=== PATIENT | female | born 1990 | race Caucasian/White ===

== ENCOUNTER → 2017-05-15 | Outpatient (CLI) | payer OTHER ==
[~2017-05-15] VITALS: Ht 160 cm; Wt 94.0 kg
[~2017-05-15] MED LIST: ALBUTEROL SULF8.5 GM IH; BENTYL20 MG PO; HYDROCORTISONE30 G3 TP; IBUPROFEN800 MG PO; LAMISIL AT12 GM TP; Motrin PO; NOHOMEMEDS; PRENATAL TABLE1 EAC3 PO; PRENATAL TABLE1 EACH PO; ZOFRAN ODT4 MG PO
[2017-05-15 13:34] VITALS: BP 112/54
== END | disposition home or self-care (01) ==
LOC: IVINF 13:29
DX: Z31.82 Encounter for Rh incompatibility status (principal)
CPT/HCPCS: 96372; J2790

== ENCOUNTER 2017-07-01 17:31 | Outpatient (CLI) | payer OTHER ==
[2017-07-01 17:52] VITALS: BP 131/67
[2017-07-01 19:12] VITALS: BP 136/62
== END 2017-07-01 20:25 | disposition home or self-care (01) ==
LOC: EME 17:31 → EDSTATUS 17:40 → LDRP-OP 17:41 → 2WEST 17:44
DX: O47.1 False labor at or after 37 completed weeks of gestation (principal); Z3A.35 35 weeks gestation of pregnancy
CPT/HCPCS: 59025; G0378

== ENCOUNTER 2017-08-08 07:15 | Inpatient (IN) | payer OTHER ==
[2017-08-08] VITALS (23 sets, daily range): BP systolic 101–135; BP diastolic 51–78
[~2017-08-08] VITALS: Ht 154.9 cm; Wt 97.5 kg
[2017-08-08 09:52] LABS: EOSINOPHIL (%) 1.1 % (0-5); EOSINOPHIL COUNT 0.1 K/uL (0-0.3); HEMATOCRIT 28.8 % (36.0-46.0); IMMATURE GRANULOCYTE (%) 1.3 % (0.0-0.7); IMMATURE GRANULOCYTE COUNT 0.1 K/uL; INSTRUMENT ABS NEUTROPHIL CT 7.5 K/uL; LYMPHOCYTE COUNT 1.7 K/uL (1.0-2.8); MCH 24.8 PG (29.0-34.0); MCHC 31.6 G/DL (30.0-36.0); MCV 78.5 FL (83-99); MEAN PLAT.VOLUME 10.7 uM^3 (9.5-12.4); MONOCYTE (%) 6.5 % (3-12); MONOCYTE COUNT 0.7 K/uL (0-0.8); NEUTROPHIL (%) 74.3 % (45-76); NEUTROPHIL COUNT 7.5 K/uL (1.8-6.4); PLATELET COUNT 168 K/uL (156-360); RED BLOOD COUNT 3.67 M/uL (3.80-5.20); WHITE BLOOD COUNT 10.1 K/uL (4.1-10.2)
[2017-08-09 07:52] LABS: EOSINOPHIL (%) 0.9 % (0-5); EOSINOPHIL COUNT 0.1 K/uL (0-0.3); HEMATOCRIT 27.4 % (36.0-46.0); IMMATURE GRANULOCYTE COUNT 0.1 K/uL; INSTRUMENT ABS NEUTROPHIL CT 7.9 K/uL; LYMPHOCYTE COUNT 1.9 K/uL (1.0-2.8); MCH 25.9 PG (29.0-34.0); MCHC 32.8 G/DL (30.0-36.0); MCV 78.7 FL (83-99); MEAN PLAT.VOLUME 11.2 uM^3 (9.5-12.4); MONOCYTE (%) 6.4 % (3-12); MONOCYTE COUNT 0.7 K/uL (0-0.8); NEUTROPHIL (%) 73.9 % (45-76); NEUTROPHIL COUNT 7.9 K/uL (1.8-6.4); PLATELET COUNT 164 K/uL (156-360); RBC DIS.WIDTH-CV 16.4 % (11.8-14.6); RBC DIS.WIDTH-SD 46.5 % (39-53); RED BLOOD COUNT 3.48 M/uL (3.80-5.20); WHITE BLOOD COUNT 10.7 K/uL (4.1-10.2)
== END 2017-08-09 19:00 | disposition home or self-care (01) | DRG 775 ==
LOC: LDRP-OP → 2WEST 07:16 → LDRP-OP 09-05 14:39
PROVIDERS: Advanced Practice Midwife
DX: O71.4 Obstetric high vaginal laceration alone (principal); O99.02 Anemia complicating childbirth; D50.9 Iron deficiency anemia, unspecified; O99.62 Diseases of the digestive system complicating childbirth; K21.9 Gastro-esophageal reflux disease without esophagitis; O99.334 Smoking (tobacco) complicating childbirth; F17.200 Nicotine dependence, unspecified, uncomplicated; O99.214 Obesity complicating childbirth; E66.9 Obesity, unspecified; Z68.35 Body mass index [BMI] 35.0-35.9, adult; Z3A.40 40 weeks gestation of pregnancy; Z37.0 Single live birth
CPT/HCPCS: 85025; C1755; J3010; J7120

== ENCOUNTER 2017-12-01 05:39 | Day surgery (SDC) | payer OTHER ==
[~2017-12-01] VITALS: Ht 157.5 cm; Wt 83.9 kg
[2017-12-01 06:55] VITALS: BP 132/68
[2017-12-01 08:33] VITALS: BP 116/55
[2017-12-01 09:45] VITALS: BP 124/74
== END 2017-12-01 10:10 | disposition home or self-care (01) ==
LOC: SDC
PROC: 0UL78DZ Occlusion of Bilateral Fallopian Tubes with Intraluminal Device, Via Natural or Artificial Opening Endoscopic (ICD-10-PCS; principal; 2017-12-01)
DX: Z30.2 Encounter for sterilization (principal); K22.70 Barrett's esophagus without dysplasia; K64.4 Residual hemorrhoidal skin tags; F17.200 Nicotine dependence, unspecified, uncomplicated; Z80.3 Family history of malignant neoplasm of breast; Z80.8 Family history of malignant neoplasm of other organs or systems
CPT/HCPCS: J0690; J1050; J1100; J1885; J2250; J2405; J3010; J7120

== ENCOUNTER 2018-02-10 13:08 | Emergency (ER) | payer OTHER ==
[~2018-02-10] VITALS: Ht 160 cm; Wt 83.5 kg
[2018-02-10 13:31] LABS: HEMATOCRIT 43.9 % (36.0-46.0); MCH 28.1 PG (29.0-34.0); MCHC 34.2 G/DL (30.0-36.0); MCV 82.2 FL (83-99); PLATELET COUNT 250 K/uL (156-360); RBC DIS.WIDTH-CV 13.6 % (11.8-14.6); RBC DIS.WIDTH-SD 40.5 % (39-53); RED BLOOD COUNT 5.34 M/uL (3.80-5.20); WHITE BLOOD COUNT 13.6 K/uL (4.1-10.2)
[2018-02-10 13:35] LABS: APPEARANCE CLOUDY ((CLEAR)); BILIRUBIN NEGATIVE; BLOOD NEGATIVE; COLOR YELLOW ((YELLOW)); GLUCOSE (STRIP) NEGATIVE; KETONES NEGATIVE; LEUKOCYTES SMALL; NITRITE NEGATIVE; PROTEIN (STRIP) 30; SPECIFIC GRAVITY 1.026 (1.000-1.030); UROBILINOGEN 0.2 MG/DL (0.2-1.0)
[2018-02-10 13:42] LABS: ALBUMIN 4.7 g/dL (3.2-4.8); CHLORIDE 110 mEq/L (99-109); POTASSIUM 4.4 mEq/L (3.7-5.4); SODIUM 140 mEq/L (136-147)
[2018-02-10 13:44] LABS: GLUCOSE 101 mg/dL (70-99); TOTAL PROTEIN 8.2 g/dL (6.4-8.3)
[2018-02-10 13:46] LABS: TOTAL BILIRUBIN 0.4 mg/dL (0.0-1.0)
[2018-02-10 13:48] LABS: ALKALINE PHOSPHATASE 69 IU/L (3-129); CREATININE 0.8 mg/dL (0.6-1.3); GFR ESTIMATE (CALCULATED) > 59 mL/min/
[2018-02-10 13:49] LABS: UREA NITROGEN (BUN) 15 mg/dL (9-23)
[2018-02-10 13:50] LABS: AST (GOT) 35 IU/L (2-34)
[2018-02-10 13:51] LABS: ALT (GPT) 100 IU/L (3-49); LIPASE 18 U/L (1.0-51.0)
[2018-02-10 13:53] LABS: BACTERIA NONE SEEN /HPF; EPITHELIAL CELLS 4+ /HPF; MUCUS 3+ /LPF; RED BLOOD CELLS 0-5 /HPF (0-5); UCUL ADDED? NO; WHITE BLOOD CELLS 0-5 /HPF (0-5)
[2018-02-10 13:57] LABS: QUANTITATIVE HCG < 4.0 MIU/ML
[2018-02-10] MEDS ORDERED: ZOFRAN ODT4 MG PO (15:34)
[2018-02-10] MEDS ORDERED: PHENERGAN12.5 MG PR (15:34)
[2018-02-10 16:00] VITALS: BP 127/82
== END 2018-02-10 16:01 | disposition home or self-care (01) ==
LOC: EME 13:08
PROVIDERS: Nurse Practitioner Family
DX: B34.9 Viral infection, unspecified (principal); R10.13 Epigastric pain; F17.200 Nicotine dependence, unspecified, uncomplicated
CPT/HCPCS: 74019; 80053; 81003; 83690; 84702; 85027; 87502; 99281; 99284

== ENCOUNTER 2018-06-21 09:35 | Emergency (ER) | payer OTHER ==
[~2018-06-21] VITALS: Ht 160 cm; Wt 79.9 kg
[~2018-06-21 09:35] MED LIST changes: +PHENERGAN12.5 MG PR
[2018-06-21 10:56] LABS: BASOPHIL (%) 0.3 % (0-1); EOSINOPHIL (%) 2.3 % (0-5); EOSINOPHIL COUNT 0.1 K/uL (0-0.3); HEMATOCRIT 35.4 % (36.0-46.0); HEMOGLOBIN 11.8 G/DL (11.9-15.5); IMMATURE GRANULOCYTE (%) 0.5 % (0.0-0.7); LYMPHOCYTE (%) 25.2 % (15-42); LYMPHOCYTE COUNT 1.4 K/uL (1.0-2.8); MCH 27.4 PG (29.0-34.0); MCHC 33.3 G/DL (30.0-36.0); MCV 82.3 FL (83-99); MONOCYTE (%) 5.8 % (3-12); MONOCYTE COUNT 0.3 K/uL (0-0.8); NEUTROPHIL (%) 65.9 % (45-76); NEUTROPHIL COUNT 3.8 K/uL (1.8-6.4); PLATELET COUNT 155 K/uL (156-360); RBC DIS.WIDTH-CV 13.4 % (11.8-14.6); RBC DIS.WIDTH-SD 39.8 % (39-53); WHITE BLOOD COUNT 5.7 K/uL (4.1-10.2)
[2018-06-21 11:08] LABS: CHLORIDE 109 mEq/L (99-109); POTASSIUM 4.3 mEq/L (3.7-5.4); SODIUM 138 mEq/L (136-147)
[2018-06-21 11:10] LABS: GLUCOSE 97 mg/dL (70-99)
[2018-06-21 11:13] LABS: APPEARANCE CLEAR ((CLEAR)); BILIRUBIN NEGATIVE; BLOOD NEGATIVE; COLOR STRAW ((YELLOW)); GLUCOSE (STRIP) NEGATIVE; KETONES NEGATIVE; LEUKOCYTES NEGATIVE; NITRITE NEGATIVE; PROTEIN (STRIP) NEGATIVE; SPECIFIC GRAVITY 1.006 (1.000-1.030); UCUL ADDED? NO; UROBILINOGEN 0.2 MG/DL (0.2-1.0)
[2018-06-21 11:14] LABS: CREATININE 0.7 mg/dL (0.6-1.3); GFR ESTIMATE (CALCULATED) > 59 mL/min/
[2018-06-21 11:15] LABS: UREA NITROGEN (BUN) 11 mg/dL (9-23)
[2018-06-21 13:35] VITALS: BP 110/68
== END 2018-06-21 13:37 | disposition home or self-care (01) ==
LOC: EME 09:35
PROVIDERS: Emergency Medicine
DX: R10.30 Lower abdominal pain, unspecified (principal); K21.9 Gastro-esophageal reflux disease without esophagitis; F41.9 Anxiety disorder, unspecified; F17.200 Nicotine dependence, unspecified, uncomplicated
CPT/HCPCS: 74176; 80048; 81003; 81025; 85025; J1885; J7030